=== PATIENT | female | born 1980 | race Caucasian/White ===

== ENCOUNTER 2020-08-30 01:02 | Emergency (ER) | payer SELFPAY ==
[~2020-08-30] VITALS: Ht 177.8 cm; Wt 133.1 kg
[2020-08-30 01:27] LABS: BASO % 0.3 % (0.0-1.0); EOS # 0.2 10*3/uL (0.0-0.4); EOS % 1.6 % (1.0-4.0); HEMATOCRIT 40.4 % (37.0-47.0); LYMPH # 3.4 10*3/uL (1.3-4.4); LYMPH % 28.4 % (27.0-41.0); MEAN CELL VOLUME 86.7 fl (81.0-99.0); MEAN CORPUSCULAR HGB 28.8 pg (27.0-31.0); MEAN CORPUSCULAR HGB CONC 33.2 g/dl (33.0-37.0); MEAN PLATELET VOLUME 9.1 fl (9.6-12.3); MONO # 0.7 10*3/uL (0.1-1.0); MONO % 5.6 % (3.0-9.0); NEUT # 7.7 10*3/uL (2.3-7.9); NEUT % 63.7 % (47.0-73.0); PLATELET COUNT AUTOMATED 329 10*3/uL (130-400); RED BLOOD COUNT 4.66 10*6/uL (4.10-5.10); WHITE BLOOD COUNT 12.1 10*3/uL (4.8-10.8)
[2020-08-30 01:44] LABS: ALBUMIN 3.3 gm/dl (3.1-4.5); ALKALINE PHOSPHATASE 108 U/L (45-117); BUN 8 mg/dl (7-24); CHLORIDE 108 mmol/L (98-107); CREATININE 0.78 mg/dL (0.55-1.02); POTASSIUM 3.6 mmol/L (3.5-5.1); SGOT/AST 9 IU/L (3-35); SGPT/ALT 25 U/L (12-78); SODIUM 141 mmol/L (136-145); TOTAL PROTEIN 7.1 gm/dL (6.4-8.2)
[2020-08-30 01:53] LABS: TROPONIN I < 0.015 ng/ml (<0.045)
== END 2020-08-30 02:33 | disposition home or self-care (01) ==
LOC: ED 01:02
PROVIDERS: Internal Medicine
DX: R07.89 Other chest pain (principal)

== ENCOUNTER 2020-09-02 19:11 | Emergency (ER) | payer SELFPAY ==
[~2020-09-02] VITALS: Wt 127.0 kg
== END 2020-09-02 21:35 | disposition home or self-care (01) ==
LOC: ED 19:11
DX: I10 Essential (primary) hypertension (principal)

== ENCOUNTER 2020-11-18 14:12 | Emergency (ER) | payer SELFPAY ==
[~2020-11-18] VITALS: Wt 117.9 kg
== END 2020-11-18 18:14 | disposition left against medical advice (07) ==
LOC: ED 14:12
DX: M79.661 Pain in right lower leg (principal); Z53.21 Procedure and treatment not carried out due to patient leaving prior to being seen by health care provider